=== PATIENT | female | born 1945 | race Caucasian/White ===

== ENCOUNTER 2020-05-10 17:02 | Inpatient (IN) | payer MEDICARE ==
[~2020-05-10] VITALS: Ht 160 cm; Wt 78.5 kg
[~2020-05-10 17:02] MED LIST: AMLO1CAP PO; AMLO1CAP54 PO; CARV12.5 PO; CARV6.25 PO; CITA10TA4 PO; FESO4TAB PO; FESO8TAB PO; FLUC100T PO; GLIP10TA13 PO; LIRA0.6P2 SQ; LISI10TA2 PO; NITR100C58 PO; NYST60PO TP; PIOG30TA27 PO
[2020-05-10 17:04] VITALS: BP 132/57
[2020-05-10 17:09] VITALS: BP 132/57
[2020-05-10] MEDS ORDERED: NS 1000ML 1,000 ML IV STA ×2 (17:12→21:13)
--- NOTE | 2020-05-10 17:17 | ER.PDOC ---
General Chief Complaint: Abdomen Pain Stated Complaint: WEAKNESS Time seen by MD: 17:15 Source: patient Exam Limitations: no limitations History of Present Illness Initial Comments Abdominal pain, fever and weakness today. No nausea, vomiting or diarrhea. Severity/Quality: moderate, sharpness Radiation: no radiation Associated Symptoms: denies symptoms Exacerbated by: nothing Relieved By: nothing Allergies: Coded Allergies: Sulfa (Sulfonamide Antibiotics) (Verified Allergy, Intermediate, 10/05/14) Home Meds Active Scripts Fluconazole (DIFLUCAN) 100 Mg Tablet, 100 MG PO DAILY24, #10 TAB 0 Refills Prov:HAILEE ANGEL MD 10/25/17 Nitrofurantoin Monohyd/M-Cryst (MACROBID 100 MG CAPSULE) 100 Mg Capsule, 100 MG PO BID, #8 CAP 0 Refills Prov:HAILEE ANGEL MD 10/25/17 Nystatin (NYSTOP) 60 Gm Powder, 1 GM TP TID for .groin rash, #1 BOT 0 Refills Prov:HAILEE ANGEL MD 10/25/17 Lisinopril (LISINOPRIL) 10 Mg Tablet, 20 MG PO BID, #60 TABLET 1 Refill Prov:HAILEE ANGEL MD 10/25/17 Reported Medications Fesoterodine Fumarate (TOVIAZ) 8 Mg Tab.er.24h, 8 MG PO DAILY24 10/22/17 Carvedilol 12.5MG (COREG 12.MG) 12.5 Mg Tablet, 12.5 MG PO BID for HYPERTENSION, #60 TAB 10/22/17 Glipizide (GLIPIZIDE) 10 Mg Tablet, 1 TAB PO BID, #60 TAB 5 Refills 10/05/14 Vital Signs First Vital Signs Date Time Temp Pulse Resp B/P (MAP) Pulse Ox O2 Delivery O2 Flow Rate FiO2 05/10/20 17:04 101.5 101 20 96 05/10/20 17:09 132/57 (82) Room Air Last Vital Signs Date Time Temp Pulse Resp B/P (MAP) Pulse Ox O2 Delivery O2 Flow Rate FiO2 05/10/20 19:48 105 21 125/62 (83) 97 Room Air 05/10/20 17:09 101.5 Past Medical History Medical History: diabetes, hypertension Surgical History: cholecystectomy Social History Alcohol Use: none Drug Use: none Constitutional: see HPI EENTM: no symptoms reported Respiratory: no symptoms reported Cardiovascular: no symptoms reported Gastrointestinal: see HPI Genitourinary: no symptoms reported Musculoskeletal: no symptoms reported All Other Systems: Reviewed and Negative Physical Exam General Appearance: No Apparent Distress, WD/WN Neck: Non-Tender, Full Range of Motion, Supple, Normal Inspection Respiratory: chest non-tender, lungs clear, normal breath sounds, no respiratory distress, no accessory muscle use Cardiovascular: Normal Peripheral Pulses, Regular Rate, Rhythm, No Edema, No Gallop, No JVD, No Murmur Gastrointestinal: Normal Bowel Sounds, No Organomegaly, No Pulsatile Mass, Guarding, Tenderness (lower abdomen) Back: Normal Inspection, No CVA Tenderness, No Vertebral Tenderness Extremities: Normal Range of Motion, Non-Tender, Normal Inspection, No Pedal Edema, No Calf Tenderness, Normal Capillary Refill, Pelvis Stable 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 (05/10/20 17:12) Urinalysis (05/10/20 17:12) Lactic Acid(Ml) (05/10/20 17:12) Blood Culture (05/10/20 17:12) 0.9 % Sodium Chloride (Ns 1000ml) (05/10/20 17:12) 0.9 % Sodium Chloride (Ns 1000ml) (05/10/20 17:26) Ekg-Routine (05/10/20 19:44) Urine Culture (05/10/20 17:12) Vital Signs Date Time Temp Pulse Resp B/P (MAP) Pulse Ox O2 Delivery O2 Flow Rate FiO2 05/10/20 19:48 105 21 125/62 (83) 97 Room Air 05/10/20 17:09 101.5 105 18 132/57 (82) 88 Room Air 05/10/20 17:04 101.5 105 18 05/10/20 17:04 101.5 101 20 96 Administered Medications Medications (Trade) Dose Ordered Sig/Sid Route PRN Reason Start Time Stop Time Status Last Admin Dose Admin Sodium Chloride 1,000 ml @ 1,200 mls/hr Q50M STAT IV 05/10/20 17:12 05/10/20 18:01 DC 05/10/20 17:31 1,200 MLS/HR Laboratory Tests Test 05/10/20 17:15 05/10/20 17:24 05/10/20 19:40 White Blood Count 16.2 10^3/uL (4.5-11.0) H Red Blood Count 4.70 10^6/uL (4.00-5.20) Hemoglobin 14.0 g/dL (12.0-15.0) Hematocrit 43.1 % (36.0-46.0) Mean Corpuscular Volume 91.7 fL (78-100) Mean Corpuscular Hemoglobin 29.8 pg (26-34) Mean Corpuscular Hemoglobin Concent 32.5 g/dL (33-36.5) L Red Cell Distribution Width 13.8 % (11.5-14.5) Platelet Count 229 10^3/uL (150-400) Mean Platelet Volume 10.1 fL (7.8-11.0) Neutrophils (%) (Auto) 92.4 % (41.0-85.0) *H Lymphocytes (%) (Auto) 3.1 % (24.0-44.0) *L Monocytes (%) (Auto) 4.1 % (5.0-12.0) L Neutrophils # (Auto) 14.9 10^3/uL (1.8-7.7) H Lymphocytes # (Auto) 0.50 10^3/uL1 (1.0-4.8) L Monocytes # (Auto) 0.7 10^3/uL (0.3-0.8) Absolute Immature Granulocyte (auto 0.04 10^3 u/L (0-2) Absolute Eosinophils (auto) 0.0 10^3/uL (0.0-0.2) Immature Granulocytes % 0.20 % (0.00-0.50) Eosinophils % 0.0 % (0.0-5.0) Basophils % 0.2 % (0.0-0.2) Basophils # 0.0 10^3/uL (0.0-0.1) Prothrombin Time 11.0 SEC (9.3-11.3) Prothrombin Time INR (Non-Therap) 1.1 Activated Partial Thromboplast Time 24.3 SEC (24.67-30.72) Sodium Level 137 mmol/L (132-145) Potassium Level 3.5 mmol/L (3.6-5.2) L Chloride Level 101.0 mmol/L (96-109) Carbon Dioxide Level 24.1 mmol/L (20.0-32) Anion Gap 15.4 Blood Urea Nitrogen 21 mg/dL (7-18) H Creatinine 1.17 mg/dL (0.59-1.40) Estimated GFR () 54.9 (>/=60) Est GFR (CKD-EPI)(Non-Afr Mexican) 45.3 (>/=60) BUN/Creatinine Ratio 17.0 Glucose Level 264 mg/dL (70-110) H Lactic Acid Level 1.3 mmol/L (0.5-1.9) Calcium Level 9.4 mg/dL (8.4-10.5) Total Bilirubin 0.6 mg/dL (0.2-1.0) Aspartate Amino Transferase (AST) 20 U/L (0-35) Alanine Aminotransferase (ALT) 15 U/L (12-78) Alkaline Phosphatase 102 U/L (50-136) Total Protein 7.8 g/dL (6.4-8.2) Albumin 4.0 g/dL (3.4-5.0) Globulin 3.8 Albumin/Globulin Ratio 1.052 Amylase Level 23 U/L (25-115) L Lipase 50 U/L (114-286) L Differential Total Cells Counted 100 #CELLS Segmented Neutrophils 90 % (31-76) H Band Neutrophils 3 % (2-6) Lymphocytes 3 % (25-36) L Monocytes 4 % (3-9) Differential Comment NORMAL Platelet Estimate ADEQUATE Blood Morphology Comment NORMAL MORPHOLOGY Urine Collection Type UNKNOWN Urine Color YELLOW (YELLOW) Urine Appearance CLEAR (CLEAR) Urine Bilirubin NEGATIVE MG/DL (NEGATIVE) Urine Ketones NEGATIVE (NEGATIVE) Urine Specific [place] 1.020 (1.005-1.035) Urine pH 6.5 (5.0-6.0) Urine Protein NEGATIVE (NEGATIVE) Urine Urobilinogen NORMAL (NEGATIVE) Urine Nitrate NEGATIVE (NEGATIVE) Urine Leukocyte Esterase NEGATIVE (NEGATIVE) Urine Blood TRACE (NEGATIVE) Urine RBC 0-2 RBC/HPF (NONE SEEN) Urine WBC 0-2 WBC/HPF (0-2) Urine Squamous Epithelial Cells FEW #/HPF (FEW) Urine Bacteria FEW (NONE SEEN) H Urine Yeast FEW Urine Glucose 500 (NEGATIVE) H Progress Progress CT abdomen/pelvis: 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 Etiology for obstruction not clearly seen. Urology consultation may be warranted. 2. Left renal atrophy and perinephric inflammatory changes. 3. Biliary dilatation which most likely relates to post cholecystectomy state; however, degree of dilatation is more than typically seen, correlate for clinical/laboratory findings of biliary obstruction. Discussed with Dr. Fenton who will be consulting. EKG/XRAY/CT/US EKG: NSR, no ST T wave changes EKG Comments: Rate 107, sinus tachycardia ER DEPART Departure Time of Disposition: 20:36 Disposition: 09 ADMITTED INPATIENT Impression: Primary Impression: Sepsis Additional Impression: Emphysematous pyelitis Condition: Critical Referrals: HAILEE ANGEL MD (PCP) PRIMARY CARE PROVIDER Comments Admitted to Dr. Angel Duration or Time Spent with Pa: 60 min Critical Care Note Total Time (mins): 60 Problem Qualifiers Primary Impression: Sepsis Sepsis type: sepsis due to unspecified organism Sepsis acute organ dysfunction status: unspecified Qualified Codes: A41.9 - Sepsis, unspecified organism ELIZABETH LOPEZ MD May 10, 2020 17:17
[2020-05-10 17:22] LABS: BASOPHIL % 0.2 % (0.0-0.2); LYMPHOCYTES % 3.1 % (24.0-44.0); MEAN CORP HGB 29.8 pg (26-34); MONOCYTES # 0.7 10^3/uL (0.3-0.8); MONOCYTES % 4.1 % (5.0-12.0); NEUTROPHIL # 14.9 10^3/uL (1.8-7.7); NEUTROPHILS % 92.4 % (41.0-85.0); PLATELET COUNT 229 10^3/uL (150-400); RED CELL DISTRIBUTION WIDTH 13.8 % (11.5-14.5)
[2020-05-10] MEDS ORDERED: NS 1000ML 1,000 ML ONE (17:26)
[2020-05-10 17:56] LABS: CALCIUM 9.4 mg/dL (8.4-10.5); CARBON DIOXIDE 24.1 mmol/L (20.0-32)
--- NOTE | 2020-05-10 18:55 | DIREP ---
PROCEDURE:CT ABDOMEN/PELVIS W/ CONTRAST COMPARISON:[facility], CR, XRAY CHEST SINGLE VW, 10/20/2017, 03:08 PM. INDICATIONS:Lower abdominal pain TECHNIQUE:Axial images were created through the abdomen and pelvis with non-ionic intravenous contrast material. No oral contrast was administered. Sagittal and coronal reconstructions were performed from source images. FINDINGS: LUNG BASES:Basilar scarring in the lungs. Coronary arterial calcifications. Mitral annular calcifications. LIVER:Cholecystectomy. Moderate intra and extrahepatic biliary dilatation with common bile duct measuring 10 mm. No calcified stones seen within the visualized biliary tree. BILIARY:Normal. No visible dilatation or calcification. PANCREAS:Moderate diffuse pancreatic atrophy. SPLEEN:Normal. No enlargement or focal lesion. ADRENALS:Normal. No mass or enlargement. URINARY TRACT:LEFT: Left renal atrophy. Mild hydronephroureter with perinephric inflammatory changes. Gas within the multiple calices is well is left ureter and urinary bladder. No intraparenchymal gas seen within the kidney. Unless there has been recent instrumentation to explain gas, findings are concerning for emphysematous pyelitis. RIGHT: Right kidney unremarkable. AORTA/VASCULAR:Aortic and major branch atherosclerotic calcifications. RETROPERITONEUM:Normal. No mass or adenopathy. BOWEL/MESENTERY:Moderate stool throughout the colon. Severe sigmoid diverticulosis without inflammatory changes. Normal appendix. Small bowel normal in caliber without obstruction. No free fluid or pneumoperitoneum. ABDOMINAL WALL:Normal. No mass or hernia. PELVIC ORGANS:Moderate urinary bladder distention. Nondependent air collections seen within the anterior bladder. No appreciable bladder wall thickening. BONES:Multilevel thoracic and lumbar spondylosis. OTHER:Negative. CONCLUSION: 1. 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 Etiology for obstruction not clearly seen. Urology consultation may be warranted. 2. Left renal atrophy and perinephric inflammatory changes. 3. Biliary dilatation which most likely relates to post cholecystectomy state; however, degree of dilatation is more than typically seen, correlate for clinical/laboratory findings of biliary obstruction. Dictated by: Baldo Roach M.D. on 05/10/2020 at 06:41 PM
[2020-05-10 19:14] LABS: BAND NEUTROPHILS 3 % (2-6); DIFFERENTIAL COMMENT NORMAL; LYMPHOCYTE 3 % (25-36); MONOCYTE 4 % (3-9); SEGMENTED NEUTROPHILS 90 % (31-76)
[2020-05-10 19:48] VITALS: BP 125/62
[2020-05-10 20:08] LABS: APPEARANCE,URINE CLEAR (CLEAR); BILIRUBIN,URINE NEGATIVE (NEGATIVE); UA COLOR YELLOW (YELLOW)
[2020-05-10 20:09] LABS: UROBILINOGEN,URINE NORMAL (NEGATIVE); YEAST,URINE FEW
--- NOTE | 2020-05-10 20:15 | PCM.EKG ---
[facility] Test Date: 2020-05-10 Test Time: 20:12:08 Pat Name: ANCA DODSON Department: Room: 234 Gender: F Panel Installer: JUAN : 1945 Requested By: ELIZABETH LOPEZ Order Number: [id number] Reading MD: Elizabeth LOPEZ Measurements Intervals [place] Rate: 107 P: 53 MA: 171 QRS: 74 QRSD: 103 T: -1 QT: 353 QTc: 471 Interpretive Statements Sinus tachycardia Ventricular premature complex Compared to ECG 10/21/2017 03:23:57 Ventricular premature complex(es) now present Sinus rhythm no longer present Prolonged QT interval no longer present Electronically Signed On 05-11-2020 22:52:38 CINETECHNICIAN by Elizabeth LOPEZ Please click the below link to view image of tracing.
--- NOTE | 2020-05-10 20:28 | NUR ---
MATEO RUIZ MBA ON PHONE WITH DR. GALINDO AT THIS TIME.
[2020-05-10] MEDS ORDERED: NS 100ML 100 ML IV ONE (20:32)
[2020-05-10 20:35] VITALS: BP 131/59
[2020-05-10] MEDS ORDERED: MAXIPIME 1 GM in NS 100ML 100 ML IV STA (20:38)
--- NOTE | 2020-05-10 22:17 | NUR ---
REPORT CALLED AND GAVE REPORT TO ENEDELIA ARORA AT THIS TIME.
[2020-05-10 22:51] VITALS: BP 111/57
--- NOTE | 2020-05-11 01:17 | PCM.HP ---
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 She states that she was in her usual state of health up until this morning when she woke up with the symptoms. She denies any nausea or vomiting. She denies any hematemesis, diarrhea, melena, hematochezia. She denies any syncope but she does report feeling very weak this morning. She states that she was having fevers and feeling very hot and when the paramedics came her temperature was 103.2. She denies any trauma or recent travel. She states that she has not eaten anything out of the ordinary. She states that her sugars have been high recently. She had lab work drawn in my office approximately a week ago and she was post to follow-up with the results of that. She does report when she woke up in the morning she had some left-sided flank pain but that went away by the time she was brought to the ER. She denies any headache or photophobia at this point. She denies any chest pain and has no shortness of breath. PAST MEDICAL HISTORY: Type 2 diabetes mellitus, hypertension, hyperlipidemia, GERD, DJD, history of hypoparathyroidism, last hospitalization here was last year for pyelonephritis and elevated troponin OB history: She is a G3, P2; she had a miscarriage in the first trimester PAST SURGICAL HISTORY: Bilateral cataract surgery, bilateral tubal ligation, 1 parathyroid gland removed, right rotator cuff surgery, D&C, colonoscopy in 2013, cholecystectomy ALLERGIES: Sulfa; Metformin causes diarrhea MEDICATIONS: I have reviewed her home medication list in [employer] SOCIAL HISTORY: No smoking, no illicit drugs no alcohol FAMILY HISTORY: Noncontributory for this admission PHYSICAL EXAMINATION: VITAL SIGNS: Temperature 101.5, pulse 105, respirations 20, blood pressure 132/57, O2 sat 96% on room air HEENT: Oropharynx is clear, no maxillary sinus tenderness NECK: Supple, no JVD HEART: S1 and S2 audible, heart rate on my exam was about 90 LUNGS: CTA bilaterally ABDOMEN: Bowel sounds are present, soft abdomen no rebound noted EXTREMITIES: No cyanosis, no clubbing, no significant edema, no rashes LABORATORY DATA: WBC 16.2 with a left shift, hemoglobin 14, platelet count 229, coags are normal, UA had few bacteria and few yeast, sodium 137, potassium 3.5, chloride 101, BUN 21, creatinine 1.17, glucose 264, lactic acid level 1.3, LFTs are normal, amylase and lipase are normal CT of the abdomen and pelvis with contrast: There appears to be emphysematous pyelitis with mild obstructive changes in the left kidney; left renal atrophy with perinephric inflammatory changes noted ASSESSMENT: We have this 74-year-old female with acute emphysematous pyelitis with early sepsis with underlying diabetes and hypertension PLAN: She will be given a bolus of IV fluids and prompt IV antibiotics and antifungals will be started for her. I will give her some pain control for her abdominal pains and watch her closely. The mortality rate can be as high as 20% with her having diabetes and acute pyelitis at this point. HAILEE GALINDO MD May 11, 2020 01:17
[2020-05-11] MEDS ORDERED: MORPHINE SULFATE IV PRN (01:30)
[2020-05-11] MEDS ORDERED: DIFLUCAN 100 ML IV ONE (01:48)
[2020-05-11] MEDS ORDERED: MORPHINE SULFATE ONE (01:48)
[2020-05-11] MEDS: HNS 1000ML/KCL 20MEQ 1,000 ML IV SCH ×2 (01:53→17:27)
[2020-05-11] MEDS: DIFLUCAN IV SCH ×2 (01:53→09:41)
[2020-05-11 04:50] VITALS: BP 116/55
[2020-05-11 06:11] VITALS: BP 116/55
[2020-05-11] MEDS: LOVENOX SQ SCH (06:37)
[2020-05-11 07:30] VITALS: BP 113/55
[2020-05-11] MEDS: HUMULIN R SQ SCH ×4 (07:45→21:00)
[2020-05-11] MEDS ORDERED: MAXIPIME 1 GM in NS 100ML 100 ML IV SCH (08:00)
[2020-05-11] MEDS: URISPAS PO SCH ×3 (08:57→21:35)
[2020-05-11] MEDS: COREG PO SCH ×2 (09:00→21:35)
[2020-05-11] MEDS ORDERED: GLUCOTROL PO SCH (09:00)
[2020-05-11] MEDS ORDERED: ZESTRIL PO SCH (09:00)
[2020-05-11] MEDS: MAXIPIME 1 GM in NS 100ML 100 ML IV SCH ×2 (09:40→21:35)
[2020-05-11] MEDS: NYSTOP TP SCH ×3 (09:41→21:33)
[2020-05-11 16:02] VITALS: BP 125/62
--- NOTE | 2020-05-11 16:45 | PRM.PN ---
Subjective Subjective Date: May 11, 2020 Time: 13:00 Subjective Pt feeling much better; eating good; denies any abd pains Patient History: FH: abdominal aortic aneurysm 33 FATHER FH: coronary artery disease 33 FATHER FH: lung cancer 33 FATHER FH: psoriatic arthritis 19 CHILD FH: rheumatoid arthritis 19 CHILD Hypertension 32 MOTHER Psoriasis 19 CHILD Spleen cancer 32 MOTHER VTE VTE Risk Total Score: 2 VTE Risk Score VTE Risk: Score 0-1 = Low Risk (Aggressive mobilization; early ambulation; no VTE prophylaxis required) Score 2: Moderate Risk (Intermittent/Pneumatic Compression Device OR Lovenox/Heparin/Coumadin) Score 3-4: High Risk (Intermittent/Pneumatic Compression Device AND Lovenox/Heparin/Coumadin) Score > or =5: Highest Risk (Intermittent/Pneumatic Compression Device AND Lovenox/Heparin/Coumadin) Antico:Hep/LMWH/Coum/Xarelto: Yes Mechanical device ordered: No Review of Systems Constitutional: No: Fever, Chills, Sweats, Weakness, Malaise Eyes: No: Pain, Vision change, Conjunctivae inflammation, Eyelid inflammation ENT: No: Ear pain, Ear discharge, Nose pain, Nose discharge Respiratory: No: Cough, Shortness of breath, SOB with excertion, Wheezing Cardiovascular: No: Chest Pain, Palpitations, Orthopnea, Paroxysmal Noc. Dyspnea Gastrointestinal: Abdominal Pain (lower abd pains); No: Nausea, Vomiting, Diarrhea, Constipation Genitourinary: No Dysuria; Frequency Musculoskeletal: No: neck pain, shoulder pain, arm pain, back pain Skin: No: Lesions, Jaundice, Bruising Neurological: No: Confusion, Seizures Allergies: Coded Allergies: Sulfa (Sulfonamide Antibiotics) (Verified Allergy, Intermediate, 10/05/14) Scheduled Carvedilol 12.5MG (Coreg 12.MG), 12.5 MG PO BID, (Reported) Fesoterodine Fumarate (Toviaz), 8 MG PO DAILY24, (Reported) Fluconazole (Diflucan), 100 MG PO DAILY24 Glipizide (Glipizide), 1 TAB PO BID, (Reported) Lisinopril (Lisinopril), 20 MG PO BID Nitrofurantoin Monohyd/M-Cryst (Macrobid 100 Mg Capsule), 100 MG PO BID Nystatin (Nystop), 1 GM TP TID Objective Vitals and I/O Vital Sign - Last 24 Hours 05/10/20 05/10/20 05/10/20 05/10/20 17:04 17:04 17:09 19:48 Temp 101.5 101.5 101.5 Pulse 101 105 105 105 Resp B/P (MAP) 132/57 (82) 125/62 (83) Pulse Ox 96 88 97 O2 Delivery Room Air Room Air 05/10/20 05/10/20 05/11/20 05/11/20 20:35 22:51 02:29 02:37 Temp 99.1 98.9 Pulse 85 97 Resp B/P (MAP) 131/59 (83) Pulse Ox 95 97 O2 Delivery Nasal Cannula Nasal Cannula O2 Flow Rate 2.00 2.00 05/11/20 05/11/20 05/11/20 05/11/20 04:50 06:11 07:30 07:30 Temp 98.8 98.8 98.5 98.5 Pulse 93 93 94 94 Resp B/P (MAP) 116/55 (75) 116/55 (75) 113/55 (74) 113/55 (74) Pulse Ox 96 96 96 O2 Delivery Room Air Nasal Canula Nasal Canula O2 Flow Rate 2.00 2.00 05/11/20 05/11/20 05/11/20 05/11/20 07:30 08:59 09:00 11:00 Pulse 94 B/P (MAP) 113/55 113/55 O2 Delivery Nasal Cannula Nasal Cannula O2 Flow Rate 2.00 2.00 05/11/20 05/11/20 15:54 16:02 Temp 98.3 Pulse 93 Resp 20 B/P (MAP) 125/62 (83) O2 Delivery Nasal Cannula O2 Flow Rate 2.00 Intake and Output 05/11/20 07:00 Intake Total 220 ml Output Total 200 ml Balance 20 ml General: Alert, Oriented X3, Cooperative, No acute distress HEENT: Atraumatic, PERRLA, Mucous membr. moist/pink Neck: Supple, No JVD, No thyromegaly Lungs: Clear to auscultation, Normal air movement Heart: Normal S1, Normal S2 Abdomen: Normal bowel sounds, Soft Extremities: No clubbing, No cyanosis Neuro: Normal speech Psych/Mental Status: Mental status NL, Mood NL All Results(Lab/Rad) Laboratory Tests Test 05/10/20 17:15 05/10/20 17:24 05/10/20 19:40 05/11/20 06:07 White Blood Count 16.2 10^3/uL Red Blood Count 4.70 10^6/uL Hemoglobin 14.0 g/dL Hematocrit 43.1 % Mean Corpuscular Volume 91.7 fL Mean Corpuscular Hemoglobin 29.8 pg Mean Corpuscular Hemoglobin Concent 32.5 g/dL Red Cell Distribution Width 13.8 % Platelet Count 229 10^3/uL Mean Platelet Volume 10.1 fL Neutrophils (%) (Auto) 92.4 % Lymphocytes (%) (Auto) 3.1 % Monocytes (%) (Auto) 4.1 % Neutrophils # (Auto) 14.9 10^3/uL Lymphocytes # (Auto) 0.50 10^3/uL1 Monocytes # (Auto) 0.7 10^3/uL Absolute Immature Granulocyte (auto 0.04 10^3 u/L Absolute Eosinophils (auto) 0.0 10^3/uL Immature Granulocytes % 0.20 % Eosinophils % 0.0 % Basophils % 0.2 % Basophils # 0.0 10^3/uL Prothrombin Time 11.0 SEC Prothrombin Time INR (Non-Therap) 1.1 Activated Partial Thromboplast Time 24.3 SEC Sodium Level 137 mmol/L Potassium Level 3.5 mmol/L Chloride Level 101.0 mmol/L Carbon Dioxide Level 24.1 mmol/L Anion Gap 15.4 Blood Urea Nitrogen 21 mg/dL Creatinine 1.17 mg/dL Estimated GFR () 54.9 Est GFR (CKD-EPI)(Non-Afr [place]ian) 45.3 BUN/Creatinine Ratio 17.0 Glucose Level 264 mg/dL Lactic Acid Level 1.3 mmol/L Calcium Level 9.4 mg/dL Total Bilirubin 0.6 mg/dL Aspartate Amino Transf (AST/SGOT) 20 U/L Alanine Aminotransferase (ALT/SGPT) 15 U/L Alkaline Phosphatase 102 U/L Total Protein 7.8 g/dL Albumin 4.0 g/dL Globulin 3.8 Albumin/Globulin Ratio 1.052 Amylase Level 23 U/L Lipase 50 U/L Differential Total Cells Counted 100 #CELLS Segmented Neutrophils 90 % Band Neutrophils 3 % Lymphocytes 3 % Monocytes 4 % Differential Comment NORMAL Platelet Estimate ADEQUATE Blood Morphology Comment NORMAL MORPHOLOGY Urine Collection Type UNKNOWN Urine Color YELLOW Urine Appearance CLEAR Urine Bilirubin NEGATIVE MG/DL Urine Ketones NEGATIVE Urine Specific [place] 1.020 Urine pH 6.5 Urine Protein NEGATIVE Urine Urobilinogen NORMAL Urine Nitrate NEGATIVE Urine Leukocyte Esterase NEGATIVE Urine Blood TRACE Urine RBC 0-2 RBC/HPF Urine WBC 0-2 WBC/HPF Urine Squamous Epithelial Cells FEW #/HPF Urine Bacteria FEW Urine Yeast FEW Urine Glucose 500 Bedside Glucose 198 Test 05/11/20 07:46 05/11/20 12:02 Bedside Glucose 169 177 Current Medications Medications (Trade) Dose Ordered Sig/Sid Route PRN Reason Start Time Stop Time Status Last Admin Dose Admin Sodium Chloride 1,000 ml @ 1,200 mls/hr Q50M STAT IV 05/10/20 17:12 05/10/20 18:01 DC 05/10/20 17:31 Sodium Chloride 1,000 ml @ ud STK-MED ONCE .ROUTE 05/10/20 17:26 05/10/20 17:28 DC Sodium Chloride 100 ml @ ud STK-MED ONCE IV 05/10/20 20:32 05/10/20 20:34 DC Cefepime HCl 1 gm/ Sodium Chloride 100 ml @ 100 mls/hr STAT STAT IV 05/10/20 20:38 05/10/20 21:37 DC 05/10/20 20:50 Sodium Chloride 1,000 ml @ 1,200 mls/hr Q50M STAT IV 05/10/20 21:13 05/10/20 22:02 DC 05/10/20 21:30 Morphine Sulfate (Morphine Sulfate) 4 mg Q4H PRN IV PAIN 7 - 10 05/11/20 01:30 06/10/20 01:29 05/11/20 01:54 Flavoxate HCl (Urispas) 100 mg TID PO 05/11/20 09:00 06/10/20 08:59 05/11/20 14:37 Enoxaparin Sodium (Lovenox) 40 mg Q24HRS SQ 05/11/20 07:00 06/10/20 06:59 05/11/20 06:37 Cefepime HCl 1 gm/ Sodium Chloride 100 ml @ 100 mls/hr Q12HR IV 05/11/20 08:00 05/11/20 09:30 DC Potassium Chloride/Sodium Chloride 1,000 ml @ 80 mls/hr [id number] IV 05/11/20 01:30 06/10/20 01:29 05/11/20 01:53 Fluconazole/ Sodium Chloride (Diflucan) 200 mg DAILY IV 05/11/20 01:30 06/10/20 01:29 05/11/20 09:41 Carvedilol (Coreg) 12.5 mg BID PO 05/11/20 09:00 06/10/20 08:59 05/11/20 09:00 Lisinopril (Zestril) 20 mg BID PO 05/11/20 09:00 05/11/20 09:26 DC 05/11/20 08:59 Nystatin (Nystop) 1 gm TID TP 05/11/20 09:00 06/10/20 08:59 05/11/20 09:41 Glipizide (Glucotrol) 10 mg BID PO 05/11/20 09:00 05/11/20 12:19 DC 05/11/20 09:41 Insulin Human Regular (Humulin R) Give 30 minutes before meal ACHS SQ 05/11/20 07:30 06/10/20 07:29 05/11/20 11:30 Morphine Sulfate (Morphine Sulfate) 4 mg STK-MED ONCE .ROUTE 05/11/20 01:48 05/11/20 01:50 DC Fluconazole/ Sodium Chloride 100 ml @ ud STK-MED ONCE IV 05/11/20 01:48 05/11/20 01:50 DC Lisinopril (Zestril) 20 mg BID PO 05/11/20 21:00 06/10/20 20:59 Cefepime HCl 1 gm/ Sodium Chloride 100 ml @ 100 mls/hr Q12H IV 05/11/20 10:00 06/10/20 07:59 05/11/20 09:40 Pioglitazone HCl (Actos) 30 mg DAILY PO 05/12/20 12:30 06/11/20 12:29 Nateglinide (Starlix) 120 mg TIDM PO 05/11/20 18:00 06/10/20 17:59 Course Sepsis Screening Results: Posi: NEGATIVE Sepsis Qualifier/Stage: NO DEFINITE RISK Duration or Total Time Spent w: 60 min Vitals & review Data Vital Sign - Last 24 Hours 05/10/20 05/10/20 05/10/2005/10/20 17:04 17:04 17:09 19:48 Temp 101.5 101.5 101.5 Pulse 101 105 105 105 Resp B/P (MAP) 132/57 (82) 125/62 (83) Pulse Ox 96 88 97 O2 Delivery Room Air Room Air 05/10/20 05/10/20 05/11/20 05/11/20 20:35 22:51 02:29 02:37 Temp 99.1 98.9 Pulse 85 97 Resp B/P (MAP) 131/59 (83) Pulse Ox 95 97 O2 Delivery Nasal Cannula Nasal Cannula O2 Flow Rate 2.00 2.00 05/11/20 05/11/20 05/11/20 05/11/20 04:50 06:11 07:30 07:30 Temp 98.8 98.8 98.5 98.5 Pulse 93 93 94 94 Resp B/P (MAP) 116/55 (75) 116/55 (75) 113/55 (74) 113/55 (74) Pulse Ox 96 96 96 O2 Delivery Room Air Nasal Canula Nasal Canula O2 Flow Rate 2.00 2.00 05/11/20 05/11/20 05/11/20 05/11/20 07:30 08:59 09:00 11:00 Pulse 94 B/P (MAP) 113/55 113/55 O2 Delivery Nasal Cannula Nasal Cannula O2 Flow Rate 2.00 2.00 05/11/20 05/11/20 15:54 16:02 Temp 98.3 Pulse 93 Resp 20 B/P (MAP) 125/62 (83) O2 Delivery Nasal Cannula O2 Flow Rate 2.00 Intake and Output 05/11/20 07:00 Intake Total 220 ml Output Total 200 ml Balance 20 ml Laboratory Tests Test 05/10/20 17:15 05/10/20 17:24 05/10/20 19:40 05/11/20 06:07 White Blood Count 16.2 10^3/uL Red Blood Count 4.70 10^6/uL Hemoglobin 14.0 g/dL Hematocrit 43.1 % Mean Corpuscular Volume 91.7 fL Mean Corpuscular Hemoglobin 29.8 pg Mean Corpuscular Hemoglobin Concent 32.5 g/dL Red Cell Distribution Width 13.8 % Platelet Count 229 10^3/uL Mean Platelet Volume 10.1 fL Neutrophils (%) (Auto) 92.4 % Lymphocytes (%) (Auto) 3.1 % Monocytes (%) (Auto) 4.1 % Neutrophils # (Auto) 14.9 10^3/uL Lymphocytes # (Auto) 0.50 10^3/uL1 Monocytes # (Auto) 0.7 10^3/uL Absolute Immature Granulocyte (auto 0.04 10^3 u/L Absolute Eosinophils (auto) 0.0 10^3/uL Immature Granulocytes % 0.20 % Eosinophils % 0.0 % Basophils % 0.2 % Basophils # 0.0 10^3/uL Prothrombin Time 11.0 SEC Prothrombin Time INR (Non-Therap) 1.1 Activated Partial Thromboplast Time 24.3 SEC Sodium Level 137 mmol/L Potassium Level 3.5 mmol/L Chloride Level 101.0 mmol/L Carbon Dioxide Level 24.1 mmol/L Anion Gap 15.4 Blood Urea Nitrogen 21 mg/dL Creatinine 1.17 mg/dL Estimated GFR () 54.9 Est GFR (CKD-EPI)(Non-Afr [place]ian) 45.3 BUN/Creatinine Ratio 17.0 Glucose Level 264 mg/dL Lactic Acid Level 1.3 mmol/L Calcium Level 9.4 mg/dL Total Bilirubin 0.6 mg/dL Aspartate Amino Transf (AST/SGOT) 20 U/L Alanine Aminotransferase (ALT/SGPT) 15 U/L Alkaline Phosphatase 102 U/L Total Protein 7.8 g/dL Albumin 4.0 g/dL Globulin 3.8 Albumin/Globulin Ratio 1.052 Amylase Level 23 U/L Lipase 50 U/L Differential Total Cells Counted 100 #CELLS Segmented Neutrophils 90 % Band Neutrophils 3 % Lymphocytes 3 % Monocytes 4 % Differential Comment NORMAL Platelet Estimate ADEQUATE Blood Morphology Comment NORMAL MORPHOLOGY Urine Collection Type UNKNOWN Urine Color YELLOW Urine Appearance CLEAR Urine Bilirubin NEGATIVE MG/DL Urine Ketones NEGATIVE Urine Specific [place] 1.020 Urine pH 6.5 Urine Protein NEGATIVE Urine Urobilinogen NORMAL Urine Nitrate NEGATIVE Urine Leukocyte Esterase NEGATIVE Urine Blood TRACE Urine RBC 0-2 RBC/HPF Urine WBC 0-2 WBC/HPF Urine Squamous Epithelial Cells FEW #/HPF Urine Bacteria FEW Urine Yeast FEW Urine Glucose 500 Bedside Glucose 198 Test 05/11/20 07:46 05/11/20 12:02 Bedside Glucose 169 177 Current Medications Medications (Trade) Dose Ordered Sig/Sid PRN Reason Start Time Stop Time Status Last Admin Carvedilol (Coreg) 12.5 mg BID 05/11/20 09:00 06/10/20 08:59 05/11/20 09:00 Cefepime HCl 1 gm/ Sodium Chloride 100 ml @ 100 mls/hr Q12H 05/11/20 10:00 06/10/20 07:59 05/11/20 09:40 Enoxaparin Sodium (Lovenox) 40 mg Q24HRS 05/11/20 07:00 06/10/20 06:59 05/11/20 06:37 Flavoxate HCl (Urispas) 100 mg TID 05/11/20 09:00 06/10/20 08:59 05/11/20 14:37 Fluconazole/ Sodium Chloride (Diflucan) 200 mg DAILY 05/11/20 01:30 06/10/20 01:29 05/11/20 09:41 Insulin Human Regular (Humulin R) Give 30 minutes before meal ACHS 05/11/20 07:30 06/10/20 07:29 05/11/20 11:30 Lisinopril (Zestril) 20 mg BID 05/11/20 21:00 06/10/20 20:59 Morphine Sulfate (Morphine Sulfate) 4 mg Q4H PRN PAIN 7 - 10 05/11/20 01:30 06/10/20 01:29 05/11/20 01:54 Nateglinide (Starlix) 120 mg TIDM 05/11/20 18:00 06/10/20 17:59 Nystatin (Nystop) 1 gm TID 05/11/20 09:00 06/10/20 08:59 05/11/20 09:41 Pioglitazone HCl (Actos) 30 mg DAILY 05/12/20 12:30 06/11/20 12:29 Potassium Chloride/Sodium Chloride 1,000 ml @ 80 mls/hr [id number] 05/11/20 01:30 06/10/20 01:29 05/11/20 01:53 LEVEL 1 SEPSIS INFECTION CRITE: ABX Therapy, Abdominal Pain Cardiovascular Evidence: Not Assessed or None Hematologic Evidence: None/Not assessed Hepatic Evidence: None/Not assessed Metabolic Evidence: None/Not assessed Neurological Evidence: None/Not assessed Respiratory Evidence: None/Not assessed Renal Evidence: None/Not assessed O2 Sat by Pulse Oximetry: 96 Oxygen Flow Rate: 2.00 Assessment/Plan Assessment/Plan Assessment/Plan 74 yo female with acute emphysematous pyelitis, early sepsis resolving, Type 2 DM, HTN, DJD - cont IV abx; clinically improving - blood and urine cx are +; await ID - ambulate - jardiance held due to acute renal infxn with sepsis - on humalog SS with starlix and actos HAILEE GALINDO MD May 11, 2020 16:45
[2020-05-11] MEDS: STARLIX PO SCH (17:34)
[2020-05-11 20:22] VITALS: BP 108/47
[2020-05-11] MEDS: ZESTRIL PO SCH (21:00)
[2020-05-12] VITALS (7 sets, daily range): BP systolic 105–136; BP diastolic 53–72
[2020-05-12] MEDS: HNS 1000ML/KCL 20MEQ 1,000 ML IV SCH (05:05)
[2020-05-12] MEDS: LOVENOX SQ SCH (06:00)
[2020-05-12] MEDS: HUMULIN R SQ SCH ×4 (07:30→21:00)
[2020-05-12] MEDS: URISPAS PO SCH ×3 (08:49→21:55)
[2020-05-12] MEDS: STARLIX PO SCH ×3 (08:49→17:43)
[2020-05-12] MEDS: COREG PO SCH ×2 (08:50→21:56)
[2020-05-12] MEDS: NYSTOP TP SCH ×3 (08:55→21:54)
[2020-05-12] MEDS: DIFLUCAN IV SCH (08:56)
[2020-05-12] MEDS: ZESTRIL PO SCH ×2 (09:02→21:55)
[2020-05-12] MEDS: MAXIPIME 1 GM in NS 100ML 100 ML IV SCH ×2 (10:45→21:54)
--- NOTE | 2020-05-12 11:59 | PRM.PN ---
Subjective Subjective Date: May 12, 2020 Time: 11:40 Subjective Pt feeling good; no complaints; walking around Patient History: FH: abdominal aortic aneurysm 33 FATHER FH: coronary artery disease 33 FATHER FH: lung cancer 33 FATHER FH: psoriatic arthritis 19 CHILD FH: rheumatoid arthritis 19 CHILD Hypertension 32 MOTHER Psoriasis 19 CHILD Spleen cancer 32 MOTHER VTE VTE Risk Total Score: 2 VTE Risk Score VTE Risk: Score 0-1 = Low Risk (Aggressive mobilization; early ambulation; no VTE prophylaxis required) Score 2: Moderate Risk (Intermittent/Pneumatic Compression Device OR Lovenox/Heparin/Coumadin) Score 3-4: High Risk (Intermittent/Pneumatic Compression Device AND Lovenox/Heparin/Coumadin) Score > or =5: Highest Risk (Intermittent/Pneumatic Compression Device AND Lovenox/Heparin/Coumadin) Antico:Hep/LMWH/Coum/Xarelto: Yes Mechanical device ordered: No Review of Systems Constitutional: No: Fever, Chills, Sweats, Weakness, Malaise Eyes: No: Pain, Vision change, Conjunctivae inflammation, Eyelid inflammation ENT: No: Ear pain, Ear discharge, Nose pain, Nose discharge Respiratory: No: Cough, Shortness of breath, SOB with excertion, Wheezing Cardiovascular: No: Chest Pain, Palpitations, Orthopnea, Paroxysmal Noc. Dyspnea Gastrointestinal: No: Nausea, Vomiting, Abdominal Pain, Diarrhea, Constipation Genitourinary: No Dysuria, No Frequency Musculoskeletal: No: neck pain, shoulder pain, arm pain, back pain Skin: No: Lesions, Jaundice, Bruising Neurological: No: Change in speech, Confusion, Seizures Allergies: Coded Allergies: Sulfa (Sulfonamide Antibiotics) (Verified Allergy, Intermediate, 10/05/14) Scheduled Carvedilol 12.5MG (Coreg 12.MG), 12.5 MG PO BID, (Reported) Fesoterodine Fumarate (Toviaz), 8 MG PO DAILY24, (Reported) Fluconazole (Diflucan), 100 MG PO DAILY24 Glipizide (Glipizide), 1 TAB PO BID, (Reported) Lisinopril (Lisinopril), 20 MG PO BID Nitrofurantoin Monohyd/M-Cryst (Macrobid 100 Mg Capsule), 100 MG PO BID Nystatin (Nystop), 1 GM TP TID Objective Vitals and I/O Vital Sign - Last 24 Hours 05/11/20 05/11/20 05/11/20 05/11/20 15:54 16:02 20:22 21:00 Temp 98.3 99.7 Pulse 93 81 Resp 20 20 B/P (MAP) 125/62 (83) 108/47 (67) 108/47 Pulse Ox 97 O2 Delivery Nasal Cannula O2 Flow Rate 2.00 05/11/20 05/12/20 05/12/20 05/12/20 21:35 00:09 00:42 04:38 Temp 98.9 99.8 Pulse 81 94 93 Resp 20 18 B/P (MAP) 108/47 105/60 (75) 110/53 (72) Pulse Ox 98 96 O2 Delivery Nasal Cannula O2 Flow Rate 2.00 05/12/20 05/12/20 05/12/20 05/12/20 07:56 08:11 08:50 09:02 Temp 99.6 99.6 Pulse 89 89 89 Resp 16 16 B/P (MAP) 131/72 (91) 131/72 (91) 131/72 131/72 Pulse Ox 92 92 O2 Delivery Nasal Canula 05/12/20 09:20 O2 Delivery Nasal Cannula O2 Flow Rate 2.00 Intake and Output 05/12/20 07:00 Intake Total 4000.6 ml Balance 4000.6 ml General: Alert, Oriented X3, Cooperative, No acute distress HEENT: Atraumatic, PERRLA, Mucous membr. moist/pink Neck: Supple, No JVD, No thyromegaly Lungs: Clear to auscultation, Normal air movement Heart: Normal S1, Normal S2 Abdomen: Normal bowel sounds, Soft Extremities: No clubbing, No cyanosis Skin: No rashes, No breakdown, No significant lesion Neuro: Normal speech Psych/Mental Status: Mental status NL, Mood NL All Results(Lab/Rad) Laboratory Tests Test 05/10/20 17:15 05/10/20 17:24 05/10/20 19:40 05/11/20 06:07 White Blood Count 16.2 10^3/uL Red Blood Count 4.70 10^6/uL Hemoglobin 14.0 g/dL Hematocrit 43.1 % Mean Corpuscular Volume 91.7 fL Mean Corpuscular Hemoglobin 29.8 pg Mean Corpuscular Hemoglobin Concent 32.5 g/dL Red Cell Distribution Width 13.8 % Platelet Count 229 10^3/uL Mean Platelet Volume 10.1 fL Neutrophils (%) (Auto) 92.4 % Lymphocytes (%) (Auto) 3.1 % Monocytes (%) (Auto) 4.1 % Neutrophils # (Auto) 14.9 10^3/uL Lymphocytes # (Auto) 0.50 10^3/uL1 Monocytes # (Auto) 0.7 10^3/uL Absolute Immature Granulocyte (auto 0.04 10^3 u/L Absolute Eosinophils (auto) 0.0 10^3/uL Immature Granulocytes % 0.20 % Eosinophils % 0.0 % Basophils % 0.2 % Basophils # 0.0 10^3/uL Prothrombin Time 11.0 SEC Prothrombin Time INR (Non-Therap) 1.1 Activated Partial Thromboplast Time 24.3 SEC Sodium Level 137 mmol/L Potassium Level 3.5 mmol/L Chloride Level 101.0 mmol/L Carbon Dioxide Level 24.1 mmol/L Anion Gap 15.4 Blood Urea Nitrogen 21 mg/dL Creatinine 1.17 mg/dL Estimated GFR () 54.9 Est GFR (CKD-EPI)(Non-Afr [place]) 45.3 BUN/Creatinine Ratio 17.0 Glucose Level 264 mg/dL Lactic Acid Level 1.3 mmol/L Calcium Level 9.4 mg/dL Total Bilirubin 0.6 mg/dL Aspartate Amino Transf (AST/SGOT) 20 U/L Alanine Aminotransferase (ALT/SGPT) 15 U/L Alkaline Phosphatase 102 U/L Total Protein 7.8 g/dL Albumin 4.0 g/dL Globulin 3.8 Albumin/Globulin Ratio 1.052 Amylase Level 23 U/L Lipase 50 U/L Differential Total Cells Counted 100 #CELLS Segmented Neutrophils 90 % Band Neutrophils 3 % Lymphocytes 3 % Monocytes 4 % Differential Comment NORMAL Platelet Estimate ADEQUATE Blood Morphology Comment NORMAL MORPHOLOGY Urine Collection Type UNKNOWN Urine Color YELLOW Urine Appearance CLEAR Urine Bilirubin NEGATIVE MG/DL Urine Ketones NEGATIVE Urine Specific [place] 1.020 Urine pH 6.5 Urine Protein NEGATIVE Urine Urobilinogen NORMAL Urine Nitrate NEGATIVE Urine Leukocyte Esterase NEGATIVE Urine Blood TRACE Urine RBC 0-2 RBC/HPF Urine WBC 0-2 WBC/HPF Urine Squamous Epithelial Cells FEW #/HPF Urine Bacteria FEW Urine Yeast FEW Urine Glucose 500 Bedside Glucose 198 Test 05/11/20 07:46 05/11/20 12:02 Bedside Glucose 169 177 Current Medications Medications (Trade) Dose Ordered Sig/Sid Route PRN Reason Start Time Stop Time Status Last Admin Dose Admin Sodium Chloride 1,000 ml @ 1,200 mls/hr Q50M STAT IV 05/10/20 17:12 05/10/20 18:01 DC 05/10/20 17:31 Sodium Chloride 1,000 ml @ ud STK-MED ONCE .ROUTE 05/10/20 17:26 05/10/20 17:28 DC Sodium Chloride 100 ml @ ud STK-MED ONCE IV 05/10/20 20:32 05/10/20 20:34 DC Cefepime HCl 1 gm/ Sodium Chloride 100 ml @ 100 mls/hr STAT STAT IV 05/10/20 20:38 05/10/20 21:37 DC 05/10/20 20:50 Sodium Chloride 1,000 ml @ 1,200 mls/hr Q50M STAT IV 05/10/20 21:13 05/10/20 22:02 DC 05/10/20 21:30 Morphine Sulfate (Morphine Sulfate) 4 mg Q4H PRN IV PAIN 7 - 10 05/11/20 01:30 06/10/20 01:29 05/11/20 01:54 Flavoxate HCl (Urispas) 100 mg TID PO 05/11/20 09:00 06/10/20 08:59 05/11/20 14:37 Enoxaparin Sodium (Lovenox) 40 mg Q24HRS SQ 05/11/20 07:00 06/10/20 06:59 05/11/20 06:37 Cefepime HCl 1 gm/ Sodium Chloride 100 ml @ 100 mls/hr Q12HR IV 05/11/20 08:00 05/11/20 09:30 DC Potassium Chloride/Sodium Chloride 1,000 ml @ 80 mls/hr [id number] IV 05/11/20 01:30 06/10/20 01:29 05/11/20 01:53 Fluconazole/ Sodium Chloride (Diflucan) 200 mg DAILY IV 05/11/20 01:30 06/10/20 01:29 05/11/20 09:41 Carvedilol (Coreg) 12.5 mg BID PO 05/11/20 09:00 06/10/20 08:59 05/11/20 09:00 Lisinopril (Zestril) 20 mg BID PO 05/11/20 09:00 05/11/20 09:26 DC 05/11/20 08:59 Nystatin (Nystop) 1 gm TID TP 05/11/20 09:00 06/10/20 08:59 05/11/20 09:41 Glipizide (Glucotrol) 10 mg BID PO 05/11/20 09:00 05/11/20 12:19 DC 05/11/20 09:41 Insulin Human Regular (Humulin R) Give 30 minutes before meal ACHS SQ 05/11/20 07:30 06/10/20 07:29 05/11/20 11:30 Morphine Sulfate (Morphine Sulfate) 4 mg STK-MED ONCE .ROUTE 05/11/20 01:48 05/11/20 01:50 DC Fluconazole/ Sodium Chloride 100 ml @ ud STK-MED ONCE IV 05/11/20 01:48 05/11/20 01:50 DC Lisinopril (Zestril) 20 mg BID PO 05/11/20 21:00 06/10/20 20:59 Cefepime HCl 1 gm/ Sodium Chloride 100 ml @ 100 mls/hr Q12H IV 05/11/20 10:00 06/10/20 07:59 05/11/20 09:40 Pioglitazone HCl (Actos) 30 mg DAILY PO 05/12/20 12:30 06/11/20 12:29 Nateglinide (Starlix) 120 mg TIDM PO 05/11/20 18:00 06/10/20 17:59 Course Sepsis Screening Results: Posi: NEGATIVE Sepsis Qualifier/Stage: NO DEFINITE RISK Duration or Total Time Spent w: 60 min Vitals & review Data Vital Sign - Last 24 Hours 05/10/20 05/10/20 05/10/20 05/10/20 17:04 17:04 17:09 19:48 Temp 101.5 101.5 101.5 Pulse 101 105 105 105 Resp 20 18 18 21 B/P (MAP) 132/57 (82) 125/62 (83) Pulse Ox 96 88 97 O2 Delivery Room Air Room Air 05/10/20 05/10/20 05/11/20 05/11/20 20:35 22:51 02:29 02:37 Temp 99.1 98.9 Pulse 85 97 Resp 20 20 B/P (MAP) 131/59 (83) Pulse Ox 95 97 O2 Delivery Nasal Cannula Nasal Cannula O2 Flow Rate 2.00 2.00 05/11/20 05/11/20 05/11/20 05/11/20 04:50 06:11 07:30 07:30 Temp 98.8 98.8 98.5 98.5 Pulse 93 93 94 94 Resp B/P (MAP) 116/55 (75) 116/55 (75) 113/55 (74) 113/55 (74) Pulse Ox 96 96 96 O2 Delivery Room Air Nasal Canula Nasal Canula O2 Flow Rate 2.00 2.00 05/11/20 05/11/20 05/11/20 05/11/20 07:30 08:59 09:00 11:00 Pulse 94 B/P (MAP) 113/55 113/55 O2 Delivery Nasal Cannula Nasal Cannula O2 Flow Rate 2.00 2.00 05/11/20 05/11/20 15:54 16:02 Temp 98.3 Pulse 93 Resp 20 B/P (MAP) 125/62 (83) O2 Delivery Nasal Cannula O2 Flow Rate 2.00 Intake and Output 05/11/20 07:00 Intake Total 220 ml Output Total 200 ml Balance 20 ml Laboratory Tests Test 05/10/20 17:15 05/10/20 17:24 05/10/20 19:40 05/11/20 06:07 White Blood Count 16.2 10^3/uL Red Blood Count 4.70 10^6/uL Hemoglobin 14.0 g/dL Hematocrit 43.1 % Mean Corpuscular Volume 91.7 fL Mean Corpuscular Hemoglobin 29.8 pg Mean Corpuscular Hemoglobin Concent 32.5 g/dL Red Cell Distribution Width 13.8 % Platelet Count 229 10^3/uL Mean Platelet Volume 10.1 fL Neutrophils (%) (Auto) 92.4 % Lymphocytes (%) (Auto) 3.1 % Monocytes (%) (Auto) 4.1 % Neutrophils # (Auto) 14.9 10^3/uL Lymphocytes # (Auto) 0.50 10^3/uL1 Monocytes # (Auto) 0.7 10^3/uL Absolute Immature Granulocyte (auto 0.04 10^3 u/L Absolute Eosinophils (auto) 0.0 10^3/uL Immature Granulocytes % 0.20 % Eosinophils % 0.0 % Basophils % 0.2 % Basophils # 0.0 10^3/uL Prothrombin Time 11.0 SEC Prothrombin Time INR (Non-Therap) 1.1 Activated Partial Thromboplast Time 24.3 SEC Sodium Level 137 mmol/L Potassium Level 3.5 mmol/L Chloride Level 101.0 mmol/L Carbon Dioxide Level 24.1 mmol/L Anion Gap 15.4 Blood Urea Nitrogen 21 mg/dL Creatinine 1.17 mg/dL Estimated GFR () 54.9 Est GFR (CKD-EPI)(Non-Afr [place]) 45.3 BUN/Creatinine Ratio 17.0 Glucose Level 264 mg/dL Lactic Acid Level 1.3 mmol/L Calcium Level 9.4 mg/dL Total Bilirubin 0.6 mg/dL Aspartate Amino Transf (AST/SGOT) 20 U/L Alanine Aminotransferase (ALT/SGPT) 15 U/L Alkaline Phosphatase 102 U/L Total Protein 7.8 g/dL Albumin 4.0 g/dL Globulin 3.8 Albumin/Globulin Ratio 1.052 Amylase Level 23 U/L Lipase 50 U/L Differential Total Cells Counted 100 #CELLS Segmented Neutrophils 90 % Band Neutrophils 3 % Lymphocytes 3 % Monocytes 4 % Differential Comment NORMAL Platelet Estimate ADEQUATE Blood Morphology Comment NORMAL MORPHOLOGY Urine Collection Type UNKNOWN Urine Color YELLOW Urine Appearance CLEAR Urine Bilirubin NEGATIVE MG/DL Urine Ketones NEGATIVE Urine Specific [place] 1.020 Urine pH 6.5 Urine Protein NEGATIVE Urine Urobilinogen NORMAL Urine Nitrate NEGATIVE Urine Leukocyte Esterase NEGATIVE Urine Blood TRACE Urine RBC 0-2 RBC/HPF Urine WBC 0-2 WBC/HPF Urine Squamous Epithelial Cells FEW #/HPF Urine Bacteria FEW Urine Yeast FEW Urine Glucose 500 Bedside Glucose 198 Test 05/11/20 07:46 05/11/20 12:02 Bedside Glucose 169 177 Current Medications Medications (Trade) Dose Ordered Sig/Sid PRN Reason Start Time Stop Time Status Last Admin Carvedilol (Coreg) 12.5 mg BID 05/11/20 09:00 06/10/20 08:59 05/11/20 09:00 Cefepime HCl 1 gm/ Sodium Chloride 100 ml @ 100 mls/hr Q12H 05/11/20 10:00 06/10/20 07:59 05/11/20 09:40 Enoxaparin Sodium (Lovenox) 40 mg Q24HRS 05/11/20 07:00 12/21/20 06:59 05/11/20 06:37 Flavoxate HCl (Urispas) 100 mg TID 05/11/20 09:00 06/10/20 08:59 05/11/20 14:37 Fluconazole/ Sodium Chloride (Diflucan) 200 mg DAILY 05/11/20 01:30 06/10/20 01:29 05/11/20 09:41 Insulin Human Regular (Humulin R) Give 30 minutes before meal ACHS 05/11/20 07:30 06/10/20 07:29 05/11/20 11:30 Lisinopril (Zestril) 20 mg BID 05/11/20 21:00 06/10/20 20:59 Morphine Sulfate (Morphine Sulfate) 4 mg Q4H PRN PAIN 7 - 10 05/11/20 01:30 06/10/20 01:29 05/11/20 01:54 Nateglinide (Starlix) 120 mg TIDM 05/11/20 18:00 06/10/20 17:59 Nystatin (Nystop) 1 gm TID 05/11/20 09:00 06/10/20 08:59 05/11/20 09:41 Pioglitazone HCl (Actos) 30 mg DAILY 05/12/20 12:30 06/11/20 12:29 Potassium Chloride/Sodium Chloride 1,000 ml @ 80 mls/hr [id number] 05/11/20 01:30 06/10/20 01:29 05/11/20 01:53 LEVEL 1 SEPSIS INFECTION CRITE: ABX Therapy, Abdominal Pain Cardiovascular Evidence: Not Assessed or None Hematologic Evidence: None/Not assessed Hepatic Evidence: None/Not assessed Metabolic Evidence: None/Not assessed Neurological Evidence: None/Not assessed Respiratory Evidence: None/Not assessed Renal Evidence: None/Not assessed O2 Sat by Pulse Oximetry: 92 Oxygen Flow Rate: 2.00 Assessment/Plan Assessment/Plan Assessment/Plan 74 yo female with acute emphysematous pyelitis, early sepsis resolvied, Type 2 DM, HTN, DJD - clinically improving; cont IV abx - blood cx with E coli; await urine cx result - jardiance held due to acute renal infxn with sepsis - on humalog SS with starlix and actos with improved blood sugars - recheck labs/UA/blood cxs tomorrow HAILEE GALINDO MD May 12, 2020 11:59
[2020-05-12] MEDS: ACTOS PO SCH (15:34)
--- NOTE | 2020-05-12 16:14 | DIET.OP ---
Nutrition Asmt/Malnutrit 2-17 Actual Date of Review: May 12, 2020 Nutritional Screening: Nutritional Screening Diagnosis: pyelitis, sepsis Pertinent Medical Hx/Surgical: DM-2, HTN, hyperlipidemia, GERD Subjective Information: telehealth assessment - pt presented with abdominal pain. CT of abdomen showed emphysematous pyelitis with mild obstructive changes in the left kidney; left renal atrophy with perinephric inflammatory changes. Pt states abdominal pain has resolved. Her appetite remains low. PO intake was as normal prior to admission. Current Diet Order/Nutrition S: 1800 bc ADA Pertinent Meds Current Medications Medications (Trade) Dose Ordered Sig/Sid PRN Reason Start Time Stop Time Status Last Admin Carvedilol (Coreg) 12.5 mg BID 05/11/20 09:00 06/10/20 08:59 05/12/20 08:50 Cefepime HCl 1 gm/ Sodium Chloride 100 ml @ 100 mls/hr Q12H 05/11/20 10:00 06/10/20 07:59 05/12/20 10:45 Enoxaparin Sodium (Lovenox) 40 mg Q24HRS 05/11/20 07:00 06/10/20 06:59 05/12/20 06:00 Flavoxate HCl (Urispas) 100 mg TID 05/11/20 09:00 06/10/20 08:59 05/12/20 15:33 Fluconazole/ Sodium Chloride (Diflucan) 200 mg DAILY 05/11/20 01:30 06/10/20 01:29 05/12/20 08:56 Insulin Human Regular (Humulin R) Give 30 minutes before meal ACHS 05/11/20 07:30 06/10/20 07:29 05/11/20 11:30 Lisinopril (Zestril) 20 mg BID 05/11/20 21:00 06/10/20 20:59 05/12/20 09:02 Morphine Sulfate (Morphine Sulfate) 4 mg Q4H PRN PAIN 7 - 10 05/11/20 01:30 06/10/20 01:29 05/11/20 01:54 Nateglinide (Starlix) 120 mg TIDM 05/11/20 18:00 06/10/20 17:59 05/12/20 15:33 Nystatin (Nystop) 1 gm TID 05/11/20 09:00 06/10/20 08:59 05/12/20 08:55 Pioglitazone HCl (Actos) 30 mg DAILY 05/12/20 12:30 06/11/20 12:29 05/12/20 15:34 Pertinent Labs Laboratory Tests Test 05/10/20 17:24 05/10/20 19:40 05/11/20 06:07 05/11/20 07:46 Differential Total Cells Counted 100 #CELLS Segmented Neutrophils 90 % Band Neutrophils 3 % Lymphocytes 3 % Monocytes 4 % Differential Comment NORMAL Platelet Estimate ADEQUATE Blood Morphology Comment NORMAL MORPHOLOGY Urine Collection Type UNKNOWN Urine Color YELLOW Urine Appearance CLEAR Urine Bilirubin NEGATIVE MG/DL Urine Ketones NEGATIVE Urine Specific [place] 1.020 Urine pH 6.5 Urine Protein NEGATIVE Urine Urobilinogen NORMAL Urine Nitrate NEGATIVE Urine Leukocyte Esterase NEGATIVE Urine Blood TRACE Urine RBC 0-2 RBC/HPF Urine WBC 0-2 WBC/HPF Urine Squamous Epithelial Cells FEW #/HPF Urine Bacteria FEW Urine Yeast FEW Urine Glucose 500 Bedside Glucose 198 169 Test 05/11/20 12:02 05/11/20 17:16 05/11/20 20:43 05/12/20 06:10 Bedside Glucose 177 117 145 84 Test 05/12/20 07:27 05/12/20 11:03 Bedside Glucose 84 142 Height (Feet): 5 Height (Inches): 3 Current Weight: 220 %IBW: 191 Recent Weight Change: No Weight Status: Obese Food Allergies: No Cultural/Ethnic/Congregational Kay[place]: none Usual Diet at Home: tries to follow DM diet but not always sucessfull Current %PO: 75% of most meals BEE in Kcals: Use Current Weight Calories/Kcals/K-14 kcal/kg-obesity Kcals Calculated: 9954-1648 kcal Protein: Use Current Weight Protein g/k.7-0.8 Protein Calculated: 70-80g Fluid: ml: 1300ml (25 ml/kg of IBW) Nutritional Problem: Nutr. Problems Present Problems: Obesity Etiology: excessive calorie intake Signs/Symptoms: BMI of 39 kg/m2 RD Comments: 1. Recommend [address] ADA diet. 2[address] RD provided brief DM diet ed 05/12. 3. Recommend outpatient nutrition counseling. 4. Continue to monitor BG and correct as indicated. Expected Outcomes Discharge on consistent carb diet. Malnutrtion/Nutrition Risk Edu: No MD Notificiation Needed?: No Nicole Gates May 12, 2020 16:14
[2020-05-12] MEDS ORDERED: TYLENOL PO ONE (18:16)
[2020-05-12] MEDS: TYLENOL PO PRN ×2 (18:24→21:56)
[2020-05-13] VITALS (8 sets, daily range): BP systolic 111–145; BP diastolic 58–98
[2020-05-13] MEDS: LOVENOX SQ SCH (06:09)
[2020-05-13 06:35] LABS: BASOPHIL % 0.5 % (0.0-0.2); EOSINOPHIL # 0.3 10^3/uL (0.0-0.2); EOSINOPHIL % 3.5 % (0.0-5.0); LYMPHOCYTES # 0.98 10^3/uL1 (1.0-4.8); LYMPHOCYTES % 12.7 % (24.0-44.0); MEAN CORP HGB 30.9 pg (26-34); MONOCYTES # 0.8 10^3/uL (0.3-0.8); MONOCYTES % 9.7 % (5.0-12.0); NEUTROPHIL # 5.7 10^3/uL (1.8-7.7); NEUTROPHILS % 73.3 % (41.0-85.0); PLATELET COUNT 227 10^3/uL (150-400); RED CELL DISTRIBUTION WIDTH 14.5 % (11.5-14.5)
[2020-05-13 07:07] LABS: CALCIUM 9.3 mg/dL (8.4-10.5); CARBON DIOXIDE 23.7 mmol/L (20.0-32)
[2020-05-13] MEDS: HUMULIN R SQ SCH ×4 (07:32→20:58)
[2020-05-13] MEDS: ACTOS PO SCH (09:10)
[2020-05-13] MEDS: ZESTRIL PO SCH ×2 (09:10→21:03)
[2020-05-13] MEDS: URISPAS PO SCH ×3 (09:11→21:03)
[2020-05-13] MEDS: STARLIX PO SCH ×3 (09:11→17:23)
[2020-05-13] MEDS: MAXIPIME 1 GM in NS 100ML 100 ML IV SCH ×2 (09:11→21:04)
[2020-05-13] MEDS: COREG PO SCH ×2 (09:12→21:03)
--- NOTE | 2020-05-13 09:15 | PRM.PN ---
Subjective Subjective Date: May 13, 2020 Time: 08:30 Subjective Pt feeling good; has no complaints Patient History: FH: abdominal aortic aneurysm 33 FATHER FH: coronary artery disease 33 FATHER FH: lung cancer 33 FATHER FH: psoriatic arthritis 19 CHILD FH: rheumatoid arthritis 19 CHILD Hypertension 32 MOTHER Psoriasis 19 CHILD Spleen cancer 32 MOTHER VTE VTE Risk Total Score: 2 VTE Risk Score VTE Risk: Score 0-1 = Low Risk (Aggressive mobilization; early ambulation; no VTE prophylaxis required) Score 2: Moderate Risk (Intermittent/Pneumatic Compression Device OR Lovenox/Heparin/Coumadin) Score 3-4: High Risk (Intermittent/Pneumatic Compression Device AND Lovenox/Heparin/Coumadin) Score > or =5: Highest Risk (Intermittent/Pneumatic Compression Device AND Lovenox/Heparin/Coumadin) Antico:Hep/LMWH/Coum/Xarelto: Yes Mechanical device ordered: No Review of Systems Constitutional: No: Fever, Chills, Sweats, Weakness, Malaise Eyes: No: Pain, Vision change, Conjunctivae inflammation, Eyelid inflammation ENT: No: Ear pain, Ear discharge, Nose pain, Nose discharge Respiratory: No: Cough, Shortness of breath, SOB with excertion, Wheezing Cardiovascular: No: Chest Pain, Palpitations, Orthopnea, Paroxysmal Noc. Dyspnea Gastrointestinal: No: Nausea, Vomiting, Abdominal Pain, Diarrhea, Constipation Genitourinary: No Dysuria, No Frequency Musculoskeletal: No: neck pain, shoulder pain, arm pain, back pain Skin: No: Lesions, Jaundice, Bruising Neurological: No: Change in speech, Confusion, Seizures Allergies: Coded Allergies: Sulfa (Sulfonamide Antibiotics) (Verified Allergy, Intermediate, 10/05/14) Scheduled Carvedilol 12.5MG (Coreg 12.MG), 12.5 MG PO BID, (Reported) Fesoterodine Fumarate (Toviaz), 8 MG PO DAILY24, (Reported) Fluconazole (Diflucan), 100 MG PO DAILY24 Glipizide (Glipizide), 1 TAB PO BID, (Reported) Lisinopril (Lisinopril), 20 MG PO BID Nitrofurantoin Monohyd/M-Cryst (Macrobid 100 Mg Capsule), 100 MG PO BID Nystatin (Nystop), 1 GM TP TID Objective Vitals and I/O Vital Sign - Last 24 Hours 05/12/20 05/12/20 05/12/20 05/12/20 09:20 12:24 17:30 20:04 Temp 99.4 Pulse 61 88 Resp 16 16 B/P (MAP) 136/61 (86) 122/62 (82) Pulse Ox 94 94 O2 Delivery Nasal Cannula Nasal Cannula O2 Flow Rate 2.00 2.00 05/12/20 05/12/20 05/12/20 05/13/20 21:11 21:55 21:56 00:54 Temp 99.1 98.4 Pulse 90 89 83 Resp 20 20 B/P (MAP) 109/66 (80) 133/64 133/64 111/60 (77) Pulse Ox 95 94 05/13/20 05/13/20 05/13/20 05:16 08:50 09:10 Temp 98.3 98.6 Pulse 79 83 Resp 18 16 B/P (MAP) 123/58 (79) 145/88 (107) 145/88 Pulse Ox 95 94 Intake and Output 05/13/20 07:00 Intake Total 6078 ml Output Total 200 ml Balance 5878 ml General: Alert, Oriented X3, Cooperative, No acute distress HEENT: Atraumatic, PERRLA, Mucous membr. moist/pink Neck: Supple, No JVD, No thyromegaly Lungs: Clear to auscultation, Normal air movement Heart: Normal S1, Normal S2 Abdomen: Normal bowel sounds, Soft Extremities: No clubbing, No cyanosis Skin: No rashes, No breakdown, No significant lesion Neuro: Normal speech Psych/Mental Status: Mental status NL, Mood NL All Results(Lab/Rad) Laboratory Tests Test 05/10/20 17:15 05/10/20 17:24 05/10/20 19:40 05/11/20 06:07 White Blood Count 16.2 10^3/uL Red Blood Count 4.70 10^6/uL Hemoglobin 14.0 g/dL Hematocrit 43.1 % Mean Corpuscular Volume 91.7 fL Mean Corpuscular Hemoglobin 29.8 pg Mean Corpuscular Hemoglobin Concent 32.5 g/dL Red Cell Distribution Width 13.8 % Platelet Count 229 10^3/uL Mean Platelet Volume 10.1 fL Neutrophils (%) (Auto) 92.4 % Lymphocytes (%) (Auto) 3.1 % Monocytes (%) (Auto) 4.1 % Neutrophils # (Auto) 14.9 10^3/uL Lymphocytes # (Auto) 0.50 10^3/uL1 Monocytes # (Auto) 0.7 10^3/uL Absolute Immature Granulocyte (auto 0.04 10^3 u/L Absolute Eosinophils (auto) 0.0 10^3/uL Immature Granulocytes % 0.20 % Eosinophils % 0.0 % Basophils % 0.2 % Basophils # 0.0 10^3/uL Prothrombin Time 11.0 SEC Prothrombin Time INR (Non-Therap) 1.1 Activated Partial Thromboplast Time 24.3 SEC Sodium Level 137 mmol/L Potassium Level 3.5 mmol/L Chloride Level 101.0 mmol/L Carbon Dioxide Level 24.1 mmol/L Anion Gap 15.4 Blood Urea Nitrogen 21 mg/dL Creatinine 1.17 mg/dL Estimated GFR () 54.9 Est GFR (CKD-EPI)(Non-Afr [place]) 45.3 BUN/Creatinine Ratio 17.0 Glucose Level 264 mg/dL Lactic Acid Level 1.3 mmol/L Calcium Level 9.4 mg/dL Total Bilirubin 0.6 mg/dL Aspartate Amino Transf (AST/SGOT) 20 U/L Alanine Aminotransferase (ALT/SGPT) 15 U/L Alkaline Phosphatase 102 U/L Total Protein 7.8 g/dL Albumin 4.0 g/dL Globulin 3.8 Albumin/Globulin Ratio 1.052 Amylase Level 23 U/L Lipase 50 U/L Differential Total Cells Counted 100 #CELLS Segmented Neutrophils 90 % Band Neutrophils 3 % Lymphocytes 3 % Monocytes 4 % Differential Comment NORMAL Platelet Estimate ADEQUATE Blood Morphology Comment NORMAL MORPHOLOGY Urine Collection Type UNKNOWN Urine Color YELLOW Urine Appearance CLEAR Urine Bilirubin NEGATIVE MG/DL Urine Ketones NEGATIVE Urine Specific [place] 1.020 Urine pH 6.5 Urine Protein NEGATIVE Urine Urobilinogen NORMAL Urine Nitrate NEGATIVE Urine Leukocyte Esterase NEGATIVE Urine Blood TRACE Urine RBC 0-2 RBC/HPF Urine WBC 0-2 WBC/HPF Urine Squamous Epithelial Cells FEW #/HPF Urine Bacteria FEW Urine Yeast FEW Urine Glucose 500 Bedside Glucose 198 Test 05/11/20 07:46 05/11/20 12:02 Bedside Glucose 169 177 Current Medications Medications (Trade) Dose Ordered Sig/Sid Route PRN Reason Start Time Stop Time Status Last Admin Dose Admin Sodium Chloride 1,000 ml @ 1,200 mls/hr Q50M STAT IV 05/10/20 17:12 11/20/20 18:01 DC 05/10/20 17:31 Sodium Chloride 1,000 ml @ STK-MED ONCE .ROUTE 05/10/20 17:26 05/10/20 17:28 DC Sodium Chloride 100 ml @ STK-MED ONCE IV 05/10/20 20:32 05/10/20 20:34 DC Cefepime HCl 1 gm/ Sodium Chloride 100 ml @ 100 mls/hr STAT STAT IV 05/10/20 20:38 05/10/20 21:37 DC 05/10/20 20:50 Sodium Chloride 1,000 ml @ 1,200 mls/hr Q50M STAT IV 05/10/20 21:13 05/10/20 22:02 DC 05/10/20 21:30 Morphine Sulfate (Morphine Sulfate) 4 mg Q4H PRN IV PAIN 7 - 10 05/11/20 01:30 06/10/20 01:29 05/11/20 01:54 Flavoxate HCl (Urispas) 100 mg TID PO 05/11/20 09:00 06/10/20 08:59 05/11/20 14:37 Enoxaparin Sodium (Lovenox) 40 mg Q24HRS SQ 05/11/20 07:00 06/10/20 06:59 05/11/20 06:37 Cefepime HCl 1 gm/ Sodium Chloride 100 ml @ 100 mls/hr Q12HR IV 05/11/20 08:00 05/11/20 09:30 DC Potassium Chloride/Sodium Chloride 1,000 ml @ 80 mls/hr [id number] IV 05/11/20 01:30 06/10/20 01:29 05/11/20 01:53 Fluconazole/ Sodium Chloride (Diflucan) 200 mg DAILY IV 05/11/20 01:30 06/10/20 01:29 05/11/20 09:41 Carvedilol (Coreg) 12.5 mg BID PO 05/11/20 09:00 06/10/20 08:59 05/11/20 09:00 Lisinopril (Zestril) 20 mg BID PO 05/11/20 09:00 05/11/20 09:26 DC 05/11/20 08:59 Nystatin (Nystop) 1 gm TID TP 05/11/20 09:00 06/10/20 08:59 05/11/20 09:41 Glipizide (Glucotrol) 10 mg BID PO 05/11/20 09:00 05/11/20 12:19 DC 05/11/20 09:41 Insulin Human Regular (Humulin R) Give 30 minutes before meal ACHS SQ 05/11/20 07:30 06/10/20 07:29 05/11/20 11:30 Morphine Sulfate (Morphine Sulfate) 4 mg STK-MED ONCE .ROUTE 05/11/20 01:48 05/11/20 01:50 DC Fluconazole/ Sodium Chloride 100 ml @ ud STK-MED ONCE IV 05/11/20 01:48 05/11/20 01:50 DC Lisinopril (Zestril) 20 mg BID PO 05/11/20 21:00 06/10/20 20:59 Cefepime HCl 1 gm/ Sodium Chloride 100 ml @ 100 mls/hr Q12H IV 05/11/20 10:00 06/10/20 07:59 05/11/20 09:40 Pioglitazone HCl (Actos) 30 mg DAILY PO 05/12/20 12:30 06/11/20 12:29 Nateglinide (Starlix) 120 mg TIDM PO 05/11/20 18:00 06/10/20 17:59 Course Sepsis Screening Results: Posi: NEGATIVE Sepsis Qualifier/Stage: NO DEFINITE RISK Duration or Total Time Spent w: 60 min Vitals & review Data Vital Sign - Last 24 Hours 05/10/20 05/10/20 05/10/20 05/10/20 17:04 17:04 17:09 19:48 Temp 101.5 101.5 101.5 Pulse 101 105 105 105 Resp 18 18 21 B/P (MAP) 132/57 (82) 125/62 (83) Pulse Ox 96 88 97 O2 Delivery Room Air Room Air 05/10/20 05/10/20 05/11/20 05/11/20 20:35 22:51 02:29 02:37 Temp 99.1 98.9 Pulse 85 97 Resp 20 B/P (MAP) 131/59 (83) Pulse Ox 95 97 O2 Delivery Nasal Cannula Nasal Cannula O2 Flow Rate 2.00 2.00 11/05/11/20 05/11/20 05/11/20 04:50 06:11 07:30 07:30 Temp 98.8 98.8 98.5 98.5 Pulse 93 93 94 94 Resp 20 B/P (MAP) 116/55 (75) 116/55 (75) 113/55 (74) 113/55 (74) Pulse Ox 96 96 96 O2 Delivery Room Air Nasal Canula Nasal Canula O2 Flow Rate 2.00 2.00 05/11/20 05/11/20 05/11/20 05/11/20 07:30 08:59 09:00 11:00 Pulse 94 B/P (MAP) 113/55 113/55 O2 Delivery Nasal Cannula Nasal Cannula O2 Flow Rate 2.00 2.00 05/11/20 05/11/20 15:54 16:02 Temp 98.3 Pulse 93 Resp 20 B/P (MAP) 125/62 (83) O2 Delivery Nasal Cannula O2 Flow Rate 2.00 Intake and Output 05/11/20 07:00 Intake Total 220 ml Output Total 200 ml Balance 20 ml Laboratory Tests Test 05/10/20 17:15 05/10/20 17:24 05/10/20 19:40 05/11/20 06:07 White Blood Count 16.2 10^3/uL Red Blood Count 4.70 10^6/uL Hemoglobin 14.0 g/dL Hematocrit 43.1 % Mean Corpuscular Volume 91.7 fL Mean Corpuscular Hemoglobin 29.8 pg Mean Corpuscular Hemoglobin Concent 32.5 g/dL Red Cell Distribution Width 13.8 % Platelet Count 229 10^3/uL Mean Platelet Volume 10.1 fL Neutrophils (%) (Auto) 92.4 % Lymphocytes (%) (Auto) 3.1 % Monocytes (%) (Auto) 4.1 % Neutrophils # (Auto) 14.9 10^3/uL Lymphocytes # (Auto) 0.50 10^3/uL1 Monocytes # (Auto) 0.7 10^3/uL Absolute Immature Granulocyte (auto 0.04 10^3 u/L Absolute Eosinophils (auto) 0.0 10^3/uL Immature Granulocytes % 0.20 % Eosinophils % 0.0 % Basophils % 0.2 % Basophils # 0.0 10^3/uL Prothrombin Time 11.0 SEC Prothrombin Time INR (Non-Therap) 1.1 Activated Partial Thromboplast Time 24.3 SEC Sodium Level 137 mmol/L Potassium Level 3.5 mmol/L Chloride Level 101.0 mmol/L Carbon Dioxide Level 24.1 mmol/L Anion Gap 15.4 Blood Urea Nitrogen 21 mg/dL Creatinine 1.17 mg/dL Estimated GFR () 54.9 Est GFR (CKD-EPI)(Non-Afr [place]) 45.3 BUN/Creatinine Ratio 17.0 Glucose Level 264 mg/dL Lactic Acid Level 1.3 mmol/L Calcium Level 9.4 mg/dL Total Bilirubin 0.6 mg/dL Aspartate Amino Transf (AST/SGOT) 20 U/L Alanine Aminotransferase (ALT/SGPT) 15 U/L Alkaline Phosphatase 102 U/L Total Protein 7.8 g/dL Albumin 4.0 g/dL Globulin 3.8 Albumin/Globulin Ratio 1.052 Amylase Level 23 U/L Lipase 50 U/L Differential Total Cells Counted 100 #CELLS Segmented Neutrophils 90 % Band Neutrophils 3 % Lymphocytes 3 % Monocytes 4 % Differential Comment NORMAL Platelet Estimate ADEQUATE Blood Morphology Comment NORMAL MORPHOLOGY Urine Collection Type UNKNOWN Urine Color YELLOW Urine Appearance CLEAR Urine Bilirubin NEGATIVE MG/DL Urine Ketones NEGATIVE Urine Specific [place] 1.020 Urine pH 6.5 Urine Protein NEGATIVE Urine Urobilinogen NORMAL Urine Nitrate NEGATIVE Urine Leukocyte Esterase NEGATIVE Urine Blood TRACE Urine RBC 0-2 RBC/HPF Urine WBC 0-2 WBC/HPF Urine Squamous Epithelial Cells FEW #/HPF Urine Bacteria FEW Urine Yeast FEW Urine Glucose 500 Bedside Glucose 198 Test 05/11/20 07:46 05/11/20 12:02 Bedside Glucose 169 177 Current Medications Medications (Trade) Dose Ordered Sig/Sid PRN Reason Start Time Stop Time Status Last Admin Carvedilol (Coreg) 12.5 mg BID 05/11/20 09:00 06/10/20 08:59 05/11/20 09:00 Cefepime HCl 1 gm/ Sodium Chloride 100 ml @ 100 mls/hr Q12H 05/11/20 10:00 06/10/20 07:59 05/11/20 09:40 Enoxaparin Sodium (Lovenox) 40 mg Q24HRS 05/11/20 07:00 06/10/20 06:59 05/11/20 06:37 Flavoxate HCl (Urispas) 100 mg TID 05/11/20 09:00 06/10/20 08:59 05/11/20 14:37 Fluconazole/ Sodium Chloride (Diflucan) 200 mg DAILY 05/11/20 01:30 06/10/20 01:29 05/11/20 09:41 Insulin Human Regular (Humulin R) Give 30 minutes before meal ACHS 05/11/20 07:30 06/10/20 07:29 05/11/20 11:30 Lisinopril (Zestril) 20 mg BID 05/11/20 21:00 06/10/20 20:59 Morphine Sulfate (Morphine Sulfate) 4 mg Q4H PRN PAIN 7 - 10 05/11/20 01:30 06/10/20 01:29 05/11/20 01:54 Nateglinide (Starlix) 120 mg TIDM 05/11/20 18:00 06/10/20 17:59 Nystatin (Nystop) 1 gm TID 05/11/20 09:00 06/10/20 08:59 05/11/20 09:41 Pioglitazone HCl (Actos) 30 mg DAILY 05/12/20 12:30 06/11/20 12:29 Potassium Chloride/Sodium Chloride 1,000 ml @ 80 mls/hr [id number] 05/11/20 01:30 06/10/20 01:29 05/11/20 01:53 LEVEL 1 SEPSIS INFECTION CRITE: ABX Therapy, Abdominal Pain LEVEL 2-SIRS (LIST ALL THAT AP: None/Not assessed Cardiovascular Evidence: Not Assessed or None Hematologic Evidence: None/Not assessed Hepatic Evidence: None/Not assessed Metabolic Evidence: None/Not assessed Neurological Evidence: None/Not assessed Respiratory Evidence: None/Not assessed Renal Evidence: None/Not assessed O2 Sat by Pulse Oximetry: 94 Oxygen Flow Rate: 2.00 Assessment/Plan Assessment/Plan Assessment/Plan 74 yo female with resolving emphysematous pyelitis, resolved sepsis, DM, HTN - blood sugars much improved - cont IV abx - repeat cultures done - ambulate HAILEE GALINDO MD May 13, 2020 09:15
[2020-05-13] MEDS: NYSTOP TP SCH ×3 (09:41→20:52)
[2020-05-13] MEDS: DIFLUCAN IV SCH (09:41)
[2020-05-13 10:03] LABS: APPEARANCE,URINE CLEAR (CLEAR); BILIRUBIN,URINE NEGATIVE (NEGATIVE); UA COLOR YELLOW (YELLOW); UROBILINOGEN,URINE NORMAL (NEGATIVE)
--- NOTE | 2020-05-13 11:12 | NUR ---
DISCHARGE PLANNING CM VISITED WITH PATIENT REGARDING DISCHARGE PLAN AND NEEDS. PATIENT LIVES AT HOME WITH HER SON AND GRANDSON. SHE IS INDEPENDENT WITH ALL ADL'S, AND SHE IS RETIRED. PATIENT DENIES NEED FOR ANY DME, HOME OXYGEN, OR HOME HEALTH AT THIS TIME. DISCHARGE GOAL IS TO DISCHARGE HOME WITH HER SON AND GRANDSON. CM DEPT WILL CONTINUE TO MONITOR DISCHARGE NEEDS.
[2020-05-13] MEDS: TYLENOL PO PRN (17:41)
[2020-05-13] MEDS ORDERED: NS 250ML 250 ML IV ONE (21:10)
[2020-05-14 01:05] VITALS: BP 131/74
[2020-05-14 05:00] VITALS: BP 123/62
[2020-05-14] MEDS: LOVENOX SQ SCH (06:13)
[2020-05-14 07:22] VITALS: BP 123/52
[2020-05-14] MEDS: HUMULIN R SQ SCH ×2 (07:30→11:57)
[2020-05-14] MEDS: STARLIX PO SCH ×2 (07:40→12:08)
[2020-05-14] MEDS: COREG PO SCH (07:40)
[2020-05-14] MEDS: ACTOS PO SCH (07:40)
[2020-05-14] MEDS: DIFLUCAN IV SCH (08:10)
[2020-05-14] MEDS: URISPAS PO SCH (08:11)
[2020-05-14] MEDS: ZESTRIL PO SCH (08:11)
[2020-05-14] MEDS: MAXIPIME 1 GM in NS 100ML 100 ML IV SCH (08:12)
[2020-05-14] MEDS: NYSTOP TP SCH (08:12)
[2020-05-14 12:21] VITALS: BP 144/74
[2020-05-14] MEDS ORDERED: CEPH-350 PO (13:06)
[2020-05-14] MEDS ORDERED: NATE120T PO (13:07)
--- NOTE | 2020-05-14 13:16 | PRM.DC ---
DISCHARGE SUMMARY DISCHARGE SUMMARY DATE OF ADMISSION: May 10, 2020 DATE OF DISCHARGE: May 14, 2020 ADMITTING DIAGNOSES: Early sepsis with acute left emphysematous pyelitis/UTI, uncontrolled type 2 diabetes mellitus with hypertension DISCHARGE DIAGNOSES: Resolved sepsis with resolved emphysematous pyelitis/UTI, type 2 diabetes mellitus, hypertension DISCHARGE DISPOSITION: Patient is discharged to home DISCHARGE CONDITION: Improved HOSPITAL COURSE: 74-year-old female who came in with an early sepsis picture with fever, leukocytosis and tachycardia. She did have an early sepsis picture with a stable blood pressure. CT scan of the abdomen where she was complaining of about pain revealed air tracking from the bladder to the collecting system of the left kidney. This picture was consistent with emphysematous pyelitis/UTI. Her sugars were uncontrolled coming in. She had a bolus of fluids and IV antibiotics were started for her. Blood cultures were positive for gram- negative rods as well as her urine culture. The cultures grew out E. coli that was sensitive to the current antibiotics that she was on which was cefepime. Her sepsis and UTI picture resolved with in 72 hours and her fevers resolved as well. Repeat blood cultures have been negative. A repeat UA is clear. She is clinically improved. Her blood sugars have been very good in the hospital ranging anywhere between 80 and 110. She had been on Jardiance which has been shown to increase the risk of urinary tract infection so this was stopped and I switch her over to Starlix. DIET: 1500 ADA ACTIVITY: As tolerated OTHER: Accu-Cheks before meals and at bedtime MEDICATIONS: 1. Stop her home Jardiance 2. Resume the rest of her home medications 3. Starlix 120 mg p.o. 3 times daily with meals 4. Keflex 500 mg p.o. twice daily x5 days FOLLOW-UP: Follow-up in my office next week; my office staff will make the appointment. HAILEE GALINDO MD May 14, 2020 13:15
[2020-05-14 13:55] VITALS: BP 144/74
--- NOTE | 2020-05-14 14:29 | NUR ---
Pt discharged at 14:12 pm accompanied by nurse wheeled on a wheelchair. Pts took discharge papers with instructions. Pt verbalizes understanding of medications and discharge instructions. Pts IV taken out, and was picked up by grandson.
== END 2020-05-14 14:07 | disposition home or self-care (01) | DRG 872 ==
LOC: EDBD 17:02 → ER 17:02 → MS 21:23
PROVIDERS: ADMIT Pediatrics; ATTEND Pediatrics
DX: A41.51 Sepsis due to Escherichia coli [E. coli] (principal); N12 Tubulo-interstitial nephritis, not specified as acute or chronic; N39.0 Urinary tract infection, site not specified; M19.90 Unspecified osteoarthritis, unspecified site; E11.65 Type 2 diabetes mellitus with hyperglycemia; J43.9 Emphysema, unspecified; K21.9 Gastro-esophageal reflux disease without esophagitis; E20.9 Hypoparathyroidism, unspecified; E78.5 Hyperlipidemia, unspecified; I10 Essential (primary) hypertension; Z88.2 Allergy status to sulfonamides; Z79.899 Other long term (current) drug therapy; Z82.49 Family history of ischemic heart disease and other diseases of the circulatory system; Z80.1 Family history of malignant neoplasm of trachea, bronchus and lung; Z82.61 Family history of arthritis; Z80.0 Family history of malignant neoplasm of digestive organs
CPT/HCPCS: 36415; 74177; 80053; 81000; 82150; 82948; 83605; 83690; 85025; 85610; 85730; 86140; 87040; 87077; 87086; 87186; 93005; 99291; G0378; J1650; J1815; J2270; J7030; J7050; Q9965; J0692; J1450

== ENCOUNTER → 2021-08-11 | Outpatient (CLI) | payer MEDICARE ==
[~2021-08-11] MED LIST changes: -AMLO1CAP54 PO; +CEPH-350 PO; -CITA10TA4 PO; +CITA10TA5 PO; -LISI10TA2 PO; +LISI10TA20 PO; +NATE120T PO; +[UNRECOGNIZED DRUG - CODE] PO
[2021-08-11 10:27] LABS: BILIRUBIN,URINE NEGATIVE (NEGATIVE); UROBILINOGEN,URINE 0.2 E.U./dL (0.2)
== END | disposition home or self-care (01) ==
LOC: NPLAB 10:08
PROVIDERS: ATTEND Nurse Practitioner Family
DX: R19.7 Diarrhea, unspecified (principal); R11.0 Nausea; R10.9 Unspecified abdominal pain; E11.9 Type 2 diabetes mellitus without complications
CPT/HCPCS: 81001; 87086

== ENCOUNTER → 2022-01-15 | Outpatient (CLI) | payer MEDICARE ==
--- NOTE | 2022-01-15 17:22 | DIREP ---
PROCEDURE:XRAY KNEE 2 VWS-LT COMPARISON:None. INDICATIONS:M71.22 Synovial cyst of popliteal space [Malhotra], left knee FINDINGS: Two views of the left knee. Tricompartmental degenerative changes with severe joint space narrowing involving the medial compartment. There is subchondral sclerosis of the medial tibial plateau. Small marginal spurs are present. No fracture or dislocation identified. No radiopaque foreign body. CONCLUSION:Tricompartmental degenerative changes with severe joint space narrowing involving the medial compartment. Dictated by: Cristal Baker MD on 01/15/2022 at 05:20 PM
--- NOTE | 2022-01-15 17:23 | DIREP ---
PROCEDURE:XRAY FOOT MIN 3 VWS-LT COMPARISON:None. INDICATIONS:M79.672 PAIN IN LEFT FOOT FINDINGS: Four views of the left foot. Small calcaneal spur. Small Achilles enthesophyte. Mild degenerative changes in the midfoot. No fracture or dislocation identified. No radiopaque foreign body. CONCLUSION:Left foot, no fracture. Potential sources of pain, as above. Dictated by: Cristal Baker MD on 01/15/2022 at 05:21 PM
== END | disposition home or self-care (01) ==
LOC: RAD 09:23
PROVIDERS: ATTEND Nurse Practitioner Family
DX: M19.072 Primary osteoarthritis, left ankle and foot (principal); M17.12 Unilateral primary osteoarthritis, left knee; M71.22 Synovial cyst of popliteal space [Baker], left knee; M71.21 Synovial cyst of popliteal space [Baker], right knee
CPT/HCPCS: 73560-LT; 73630-LT